=== PATIENT | female | born 1950 | race Caucasian/White ===

== ENCOUNTER 2023-07-30 09:59 | Inpatient (IN) | payer MEDICARE, BC ==
[~2023-07-30] VITALS: Ht 165.1 cm; Wt 94.8 kg
[2023-07-30] MEDS ORDERED: LEXAPRO 10MG10 MG PO (15:13)
[2023-07-30] MEDS ORDERED: FERROUS SU325 MG/TAB PO (15:13)
[2023-07-30] MEDS ORDERED: ASPERCREME1 EACH TP (15:14)
[2023-07-30] MEDS ORDERED: MOBIC 7.5MG7.5 MG PO (15:14)
[2023-07-30] MEDS ORDERED: NUTRISOURCE FI205 GM PO (15:15)
[2023-07-30] MEDS ORDERED: GLUCOPHAGE500 MG/TAB PO (15:15)
[2023-07-30] MEDS ORDERED: REQUIP 1MG T1 MG/TAB PO (15:15)
[2023-07-30] MEDS ORDERED: PROTONIX 40MG T40 MG PO (15:15)
[2023-07-30] MEDS ORDERED: REQUIP2 MG PO (15:16)
[2023-07-30] MEDS ORDERED: VANCO 1 GR1 GM/250 M IV (15:17)
--- NOTE | 2023-07-30 16:10 | NUR ---
PATIENT BROUGHT TO FLOOR. ASSESSMENT PERFORMED. INTAKE COMPLETE. WAITING FOR ORDERS. PATIENT REPORTS MILD PAIN AND NAUSEA.
[2023-07-30 18:00] VITALS: BP 108/74; PULSE 63; TEMP 97.7
--- NOTE | 2023-07-30 21:26 | NUR ---
PT A&O X4 LAYING IN BED. DENYING N/V & STATES SHE HAS SOME MILD PAIN IN HER LOWER BACK BUT DENYING NEED FOR PAIN MEDS AT THIS TIME. GARCIA TO DD WITH CLOUDY MICA OUTPUT. FALL PRECAUTIONS IN PLACE & CALL LIGHT IN REACH.
[2023-07-30 21:38] VITALS: BP_SYST 108
[2023-07-31 05:50] VITALS: BP 135/96; PULSE 75; TEMP 98.4
--- NOTE | 2023-07-31 06:24 | NUR ---
PT AWAKE SITTING UP IN BED THIS MORNING. NO C/O PAIN. DENYING FURTHER NEEDS. CALL LIGHT IN REACH & FALL PRECAUTIONS IN PLACE.
[2023-07-31 06:49] VITALS: BP_SYST 135
--- NOTE | 2023-07-31 09:37 | NUR ---
PATIENT ALERT AND ORIENTED X4. VSS. PATIENT HERE FOR DEBILITY R/T INFECTION S/P LAMINECTOMY. PATIENT REPORTS PAIN /, REQUESTS PAIN MEDICATION. PICC TO RIGHT UPPER ARM, SINGLE LUMEN, FLUSHES WELL, GOOD BLOOD RETURN. GARCIA TO DD WITH YELLOW OUTPUT. PATIENT DENIES ANY NAUSEA THIS MORNING. PATIENT TOLERATING PO. CALL LIGHT IN REACH. BED ALARM ON. NO FURTHER NEEDS.
--- NOTE | 2023-07-31 10:45 | NUR ---
Has lack of transportation kept you from medical appts, meetings, work, or from getting things needed for daily living? NO How often do you feel lonely or isolated from those around you? NEVER Over the past 5 days, how much of the time has pain made it hard for you to sleep? RARELY OR NOT AT ALL Over the past 5 days, how often have you limited your participation in therapy due to pain? RARELY OR NOT AT ALL Over the past 5 days, how often have you limited your day-to-day activities because of pain? RARELY OR NOT AT ALL Have you had 2 or more falls in the past year or any fall with an injury? YES Did you have major surgery during the 100 days prior to admission? YES
--- NOTE | 2023-07-31 14:11 | NUR ---
Lead Ramp Service Man met with patient to complete initial intake. Patient lives [place], [place] with her daughter, Marisa (ph#[phone]) and her son in law, Francesco. Patient does not have a current primary care provider but would be interested in SW helping her set one up. Patient was being seen by a PCP in [place], but patient stated she was "discharged" on the first. SW inquired as to why and patient stated that PCP "didn't know what to do with me". Patient uses [facility] in [place] for medications. Patient stated she has been in and out of the hospital since December, but before that she was independent with ADLS. Patient lives in a one level home that has five stairs into the home at the front, however patient enters through the garage, which has a ramp. Patient has a walk in shower, shower seat, grab bars, toilet riser, bars on each side of the toilet, bedside rail, front wheeled walker, and she is currently renting a wheelchair. Patient advised she has had services from [facility] and would like to use them again if HH is recommended. Patient stated her daughters: Marisa and Zara are her DPOA-HC.
--- NOTE | 2023-07-31 14:23 | NUR ---
Gis Mapping Technician contacted the [facility] for [facility] and notified them that patient has been admitted to [facility]. will keep them posted on discharge date and recommendations. #[phone]
[2023-07-31 16:52] VITALS: BP 138/48; PULSE 65; TEMP 99.4
[2023-07-31 19:26] VITALS: BP_SYST 138
--- NOTE | 2023-07-31 19:27 | NUR ---
RECEIVED CHANGE OF SHIFT REPORT FROM DAY SHIFT RN. PATIENT RESTING IN BED, EXIT ALARM ON, CALL LIGHT IN REACH. DENIES ANY NEEDS AT TIME OF REPORT.
[2023-08-01 05:25] VITALS: BP 131/48; PULSE 72; TEMP 98.4
[2023-08-01 07:16] VITALS: BP_SYST 131
--- NOTE | 2023-08-01 07:16 | NUR ---
Shift report received from night RN. Pt sleeping supine in bed w/ even & unlabored resps. No events reported overnight. Pt has her call light in reach. Fall precautions in place.
--- NOTE | 2023-08-01 07:17 | NUR ---
CHANGE OF SHIFT REPORT GIVEN TO DAY SHIFT RNSAM.
--- NOTE | 2023-08-01 07:43 | NUR ---
Pt sitting up in bed to eat breakfast independently. Pt reporting low back pain at 710 & requesting Tylenol. Tylenol given per PRN order. Other needs denied. Call light in reach. Bed alarm on.
--- NOTE | 2023-08-01 08:59 | NUR ---
Pt off unit w/ PT.
--- NOTE | 2023-08-01 11:24 | NUR ---
Shower completed w/ OT assistance. Pt c/o mid back & left lower back pain. Lidocaine patches placed over these areas at pt's request. Pt also c/o rt heel soreness. Skin is firm (not boggy), intact, and blanches. Pt declined wearing PRIMO boot for now & would like to try floating heel w/ pillows first. Discussed w/ pt keeping BLE elevated on footrest while she is in recliner to promote circulation. Pt agreeable. Pt denies other needs. OT in the room for upper & lower body dressing.
--- NOTE | 2023-08-01 11:46 | NUR ---
Pt reporting back pain at 02/26. Tylenol given per PRN order at pt's request.
--- NOTE | 2023-08-01 13:03 | NUR ---
Pt off unit w/ PT.
--- NOTE | 2023-08-01 15:07 | NUR ---
Pt sitting up in bed visiting w/ her daughters. Pt given scheduled gabapentin approx 30 minutes ago. Pt denies any other needs at this time. Call light in her reach. Fall precautions in place.
--- NOTE | 2023-08-01 15:18 | NUR ---
Pediatric Dietician met with patient and her two daughters, Marisa and Zara to provide copy of team conference notes and give update. SW advised patient will be re-evaluated next week and that there is not set discharge date at this time. SW did discuss patient's goal of getting home before [place]. TATI scheduled family meeting for 08/08/23.
[2023-08-01 17:09] VITALS: BP 125/51; PULSE 80; TEMP 98.8
--- NOTE | 2023-08-01 17:19 | NUR ---
Pt sitting up in bed to eat dinner independently. Pt still feeling full from the lunch her daughter brought for her. Pt ate <10% of her dinner. Tylenol given for back pain 02/26. Pt would like roxicodone at bedtime - will pass on to night RN. Pt denies other needs. Call light in her reach. Bed alarm is on.
[2023-08-01 18:51] VITALS: BP_SYST 125
--- NOTE | 2023-08-01 21:00 | NUR ---
[id number] PT RESTING IN BED. A&O REMAINS IN ISOLATION FOR MRSA. SEE COMPLETED SHIFT ASSESSMENT. SEE MAR FOR OXYCODONE GIVEN FOR BACK PAIN. LEVEL 7/10. SEE NEW ORDER FOR UA. URINE IN GARCIA VERY CLOUDY AND PINK/YELLOW. ALSO GAVE ADDITIONAL PROTONIX FOR C/O HEARTBURN PER ORDER. CALL LIGHT IN REACH. BED ALARM SET.
[2023-08-02 00:08] LABS: COLLECTION METHOD CATHETER
[2023-08-02 00:44] LABS: PH 5.5 (5.0-8.5); URINE APPEARANCE Cloudy (CLEAR/HAZY); URINE COLOR Yellow (YELLOW); URINE PROTEIN(semi-quant) 1+ (NEGATIVE)
[2023-08-02 00:45] LABS: URINE BLOOD 3+ (NEGATIVE); URINE GLUCOSE Negative (NEGATIVE); URINE KETONE Negative (NEGATIVE); URINE NITRATE Positive (NEGATIVE); URINE UROBILINOGEN 0.2 E.U/dL (0.2-1.0)
[2023-08-02 01:26] LABS: URINE BACTERIA Many /hpf (NONE SEEN)
[2023-08-02 05:57] VITALS: BP 132/51; PULSE 69; TEMP 97.8
[2023-08-02 06:46] VITALS: BP_SYST 132
--- NOTE | 2023-08-02 06:47 | NUR ---
Shift report received from night RN. Pt c/o increased heartburn/GERD sx overnight. Pt was given additional dose of Protonix during the noc shift. Pt currently sleeping supine w/ even & unlabored resps. Call light in reach. Fall precautions in place.
--- NOTE | 2023-08-02 07:20 | NUR ---
Pt sitting up in bed to eat breakfast. Pt rating back pain at 6/10. Tylenol requesting prior to starting PT at 0915 this morning. Other needs denied. Call light in reach. Fall prec in place.
--- NOTE | 2023-08-02 08:26 | NUR ---
Dr. Brennan notified of Uro cons placed. Plan to see pt later today
--- NOTE | 2023-08-02 10:28 | NUR ---
Pt off unit for Group Therapy.
--- NOTE | 2023-08-02 12:17 | NUR ---
Pt sitting up in her wheelchair eating lunch independently. Pt rating her back pain at 6/10. Tylenol given per PRN order.
--- NOTE | 2023-08-02 12:45 | NUR ---
Admission QIM scores were reviewed by the team. Code of 88 chosen for oral hygiene was determined by team discussion to be the most usual performance before interventions for this patient during the assessment period. Code of 2 chosen for putting on/taking off footwear was determined by team discussion to be the most usual performance before interventions for this patient during the assessment period. Code of 3 chosen for lying to sitting side of bed was determined by team discussion to be the most usual performance before interventions for this patient during the assessment period. Code of 2 chosen for sit to stand was determined by team discussion to be the most usual performance for this patient during the discharge assessment period. Code of 2 chosen for chair/bed to chair transfer was determined by team discussion to be the most usual performance before interventions for this patient during the assessment period. Code of 4 for car transfer was determined by team discussion to be the most usual performance before interventions for this patient during the assessment period. Code of 88 chosen for walking 10 feet was determined by team discussion to be the most usual performance for this patient during the discharge assessment period.--Laurel Sharpe, PD
--- NOTE | 2023-08-02 14:04 | NUR ---
Pt resting supine in bed after working w/ OT. Pt denies the need for any pain medication at this time. Call light in her reach. Bed alarm is on.
[2023-08-02] MEDS ORDERED: DULCOLAX S10 MG/SUPP RC (14:48)
[2023-08-02] MEDS ORDERED: ZOFRAN 4MG T4 MG/TAB PO (14:49)
[2023-08-02] MEDS ORDERED: MIRALAX PA17 GM/Dose PO (14:50)
[2023-08-02] MEDS ORDERED: LACTULOSE10 GM/153 PO (14:51)
[2023-08-02] MEDS ORDERED: LOVENOX 4040 MG/0.4 SQ (14:52)
[2023-08-02] MEDS ORDERED: TYLENOL 325MG325 MG PO (14:52)
[2023-08-02] MEDS ORDERED: GLUCAGON EMERGEN1 M1 SQ (14:53)
[2023-08-02] MEDS ORDERED: CVS GLUCOSE15 GM (14:53)
[2023-08-02] MEDS ORDERED: ROXICODONE15 MG PO (14:55)
--- NOTE | 2023-08-02 16:27 | NUR ---
Pt sitting up in bed eating a snack & watching tv. She denies the need for pain medication at this time. Call light in her reach. Bed alarm is on.
[2023-08-02 17:56] VITALS: BP 141/46; PULSE 79; TEMP 98.4
[2023-08-02 18:30] VITALS: BP_SYST 141
--- NOTE | 2023-08-02 20:00 | NUR ---
PT RESTING IN BED. A&O. REMAINS IN ISOLATION. HAVING BACK PAIN. DENIES NEED FOR OXYCODONE W/ PAIN LEVEL 6-02/26. RT FOOT DROP. CALL LIGHT IN REACH. BED ALARM SET.
[2023-08-03 04:18] VITALS: BP 126/53; PULSE 67; TEMP 98
[2023-08-03 07:02] VITALS: BP_SYST 126
--- NOTE | 2023-08-03 09:19 | NUR ---
PT UP TO SHOWER WITH OT THIS AM. MEDS GIVEN PER ORDERS. PO TYLE FOR PAIN AT THIS TIME PER PT REQUEST. PICC LINE TO FLORENCIO. AM LABS DRAWN, INSULIN NOT REQUIRED THIS AM. LIDO PATCHES TO LEFT LOWER BACK.
--- NOTE | 2023-08-03 14:40 | NUR ---
Organ Pipe Maker Metal checked in on patient before the weekend and she had no questions or concerns at this time. SW provided list of primary care providers in the [place], [place] area for her to review.
[2023-08-03 17:43] VITALS: BP 149/56; PULSE 71; TEMP 98.7
[2023-08-03 19:00] VITALS: BP_SYST 149
--- NOTE | 2023-08-03 19:00 | NUR ---
PATIENT IS IN BED RESTING, WATCHING TV WITH COMPLAINTS OF PAIN AND NAUSEA. PATIENT'S VITAL SIGNS ARE STABLE AND CALL LIGHT IS WITHIN REACH. PATIENT HAS A RIGHT UPPER ARM PICC WHICH FLUSHES WITHOUT BLOOD RETURN. WILL BE COMING IN DURING ASSESSMENT WITH PAIN AND NAUSEA MEDICATION. PATIENT STILL HAS GARCIA CATHETER IN PLACE.
[2023-08-04] VITALS (8 sets, daily range): BP systolic 132–151; BP diastolic 50–89; PULSE 67–77; TEMP 97.4–98.4
[2023-08-04 06:32] LABS: BASO # 0.1 K/mm3 (0.0-0.2); BASO % 0.8 % (0.0-2.0); CALCIUM 8.4 mg/dL (8.4-10.2); CREATININE, serum 0.58 mg/dL (0.57-1.11); EOS # 0.3 K/mm3 (0.0-0.7); EOS % 4.6 % (0.0-4.0); GRAN # 4.5 K/mm3 (1.4-6.5); GRAN % 71.4 % (42.2-75.2); LYMPH # 1.1 K/mm3 (1.2-3.4); LYMPH % 17.8 % (20.0-51.0); MEAN CELL VOLUME 86 fl (80.0-100.0); MEAN CORPUSCULAR HGB CONC 31 g/dl (33.0-37.0); MEAN PLATELET VOLUME 9.3 fl (7.4-10.4); MONO # 0.3 K/mm3 (0.1-0.6); MONO % 5.1 % (1.7-9.3); PLATELET COUNT 200 K/mm3 (130-400); RED BLOOD COUNT 3.25 M/mm3 (4.10-5.30); REDCELL DISTRIBUTION WIDTH-CV 16.5 % (11.5-14.5)
[2023-08-04 06:34] LABS: HEMATOCRIT 27.9 % (37.0-47.0); HEMOGLOBIN 8.7 g/dl (12.5-16.0); MEAN CORPUSCULAR HEMOGLOBIN 27 pg (27-31); POTASSIUM 2.7 mmol/L (3.5-4.5)
--- NOTE | 2023-08-04 06:58 | NUR ---
Shift report received from night RN. K+ 2.7 this morning. IV K+ started by night RN. Will continue to monitor. Pt sleeping supine in bed w/ even & unlabored resps. Call light in reach. Fall precautions in place.
--- NOTE | 2023-08-04 07:28 | NUR ---
Critical K+ value reported to Hospitalist. K+ 2.7. IV K+ was initiated by yannick RN. Per Hospitalist, continue & complete current bag of K+. Initiate tele. Give 40meQ PO Effer K once bag completed & repeat dose in 4 hrs. Recheck K+ in four hours. Pt updated on new orders. Pt denies chest pain, NUÑEZ, dizziness, difficulty breathing.
--- NOTE | 2023-08-04 07:53 | NUR ---
Pt sitting up in bed to eat breakfast independently. Effer K given as ordered. Tele monitor placed on. Pt denies chest pain, NUÑEZ, difficulty breathing. Zofran given per PRN order for nausea.
--- NOTE | 2023-08-04 08:59 | NUR ---
OT refused this morning d/t nausea. She reports nausea is getting better after taking Zofran this morning. Denies any other needs at this time. Call light in her reach. Bed alarm is on.
--- NOTE | 2023-08-04 10:40 | NUR ---
Group Therapy refused.
--- NOTE | 2023-08-04 13:50 | NUR ---
Pt resting supine in bed watching tv. She has had 2-3 loose/soft BM's throughout shift so far. Last K+ level 4.0. Pt denies the need for pain medication at this time. Call light in her reach. Bed alarm on. Prakash cath patent to drainage bag.
--- NOTE | 2023-08-04 16:04 | NUR ---
Pt resting supine in bed w/ BLE elevated on pillows. Pt denies pain. Reports her stomach feels "like it's churning". Ge offered & declined. Pt states she will call if nausea gets worse. Other needs denied. Call light in her reach. Bed alarm on.
--- NOTE | 2023-08-04 17:19 | NUR ---
Pt sitting up in bed eating breakfast. Pt denies nausea or abd. pain but states she does not have much of an appetite. Pt denies the need for pain medication. Other needs denied. Call light in reach. Bed alarm on.
--- NOTE | 2023-08-04 20:00 | NUR ---
UPON SHIFT ASSESSMENT, ALFA WAS UP IN BED WATCHING TV. SHE WAS PLEASANT AND AXO X4. SHE C/O 3/10 BACK PAIN AND DID NOT ASK FOR PAIN MEDS. SHE VOICED CONCERNS ABOUT ONGOING LOOSE STOOLS-PROBIOTICS IN EMAR. GARCIA ACTIVELY DRAINING MICA, CLEAR URINE. BLLE WEAKNESS NOTED ON RT FOOT. SHE DENIES CHEST PAIN AND SOA.
[2023-08-05] VITALS (8 sets, daily range): BP systolic 124–159; BP diastolic 54–63; PULSE 68–104; TEMP 98–98.9
--- NOTE | 2023-08-05 02:14 | NUR ---
BARRIER CREAM APPLIED TO INNER THIGHS AND CATHETER CARE PROVIDED.
--- NOTE | 2023-08-05 02:45 | NUR ---
ALFA C/O NAUSEA. PRN ZOFRAN ADMINISTERED.
--- NOTE | 2023-08-05 04:15 | NUR ---
ALFA'S NAUSEA IS UNRESOLVED WITH ZOFRAN. ADMINISTERED PRN TUMS.
--- NOTE | 2023-08-05 05:35 | NUR ---
THROUGHOUT THE NIGHT, ALFA COMPLAINED OF NAUSEA. HER VITAL SIGNS REMAIN STABLE AND TELE IS NS. SHE DENIES ANY PAIN OR NEEDS AT THIS TIME. CALL LIGHT WITHIN REACH.
--- NOTE | 2023-08-05 07:07 | NUR ---
Shift report received from night RN. Pt received 2G IV Mag during noc shift for replacement. Redness noted to bilat inner thighs & barrier crm applied - will continue to monitor skin. No other events reported overnight. Pt sleeping supine in bed w/ even & unlabored resps. Call light in reach. Bed alarm on.
[2023-08-05 07:23] LABS: CALCIUM 8.5 mg/dL (8.4-10.2); CREATININE, serum 0.61 mg/dL (0.57-1.11); POTASSIUM 3.6 mmol/L (3.5-4.5)
--- NOTE | 2023-08-05 09:45 | NUR ---
Pt incont of loose/soft small BM. Hygiene & catheter care completed. Prakash cath patent to drainage bag w/ clear, yellow urine. Pt given Oxycodone approx 1 hr ago at her request for back pain. Lidocaine patches placed to left hip & left low back. Pt denies any nausea, chest pain, NUÑEZ. Pt is anticipating a visit from her children later this morning & is agreeable to getting out of bed around that time. Pt denies other needs. Call light in her reach. Bed alarm on.
--- NOTE | 2023-08-05 14:55 | NUR ---
Pt sitting up in bed eating lunch that was brought in by her daughters and son-in-law. Pt reports feeling better today than yesterday. She feels that taking pain medication this morning made a difference. Pt denies the need for any pain medication at this time. Denies other needs. Call light in her reach. Bed alarm is on.
--- NOTE | 2023-08-05 15:19 | NUR ---
Pt requesting pain medication for pain 9/10 in her back. Oxycodone given per PRN order. Family remains at the bedside. Pt denies other needs. Call light in her reach. Bed alarm is on.
--- NOTE | 2023-08-05 18:08 | NUR ---
Pt lying supine in bed watching tv. Pain/discomfort denied. Other needs denied. Call light in reach. Bed alarm on. Vanc infusing to RUE PICC w/o sx of infiltration.
--- NOTE | 2023-08-05 18:26 | NUR ---
Pt declined dinner tray - feels full from the lunch her daughters brought in for her this afternoon.
--- NOTE | 2023-08-05 18:57 | NUR ---
RECEIVED CHANGE OF SHIFT REPORT FROM DAY SHIFT RN.
[2023-08-06] VITALS (9 sets, daily range): BP systolic 126–146; BP diastolic 45–58; PULSE 73–81; TEMP 97.5–98.7
--- NOTE | 2023-08-06 02:52 | NUR ---
Patient resting with eyes closed, does not wake when door to room open by staff nursing rounds. Observed breathing as nonlabored and even. Exit alarm on with call light in reach.
[2023-08-06 06:58] LABS: BASO # 0.1 K/mm3 (0.0-0.2); EOS # 0.3 K/mm3 (0.0-0.7); EOS % 4.1 % (0.0-4.0); GRAN # 5.3 K/mm3 (1.4-6.5); GRAN % 72.4 % (42.2-75.2); LYMPH # 1.2 K/mm3 (1.2-3.4); LYMPH % 16.6 % (20.0-51.0); MEAN CELL VOLUME 88 fl (80.0-100.0); MEAN CORPUSCULAR HGB CONC 30 g/dl (33.0-37.0); MEAN PLATELET VOLUME 9.2 fl (7.4-10.4); MONO # 0.4 K/mm3 (0.1-0.6); MONO % 5.6 % (1.7-9.3); PLATELET COUNT 212 K/mm3 (130-400); RED BLOOD COUNT 3.38 M/mm3 (4.10-5.30); REDCELL DISTRIBUTION WIDTH-CV 16.7 % (11.5-14.5)
[2023-08-06 07:00] LABS: HEMATOCRIT 29.7 % (37.0-47.0); MEAN CORPUSCULAR HEMOGLOBIN 27 pg (27-31)
[2023-08-06 07:17] LABS: ERYTHROCYTE SEDIMENTATION RATE 30 mm/hr (0-30)
[2023-08-06 07:23] LABS: ALANINE AMINOTRANSFERASE < 6 U/L (0-55); ALBUMIN 2.5 gm/dL (3.4-4.8); ALKALINE PHOSPHATASE 68 U/L (40-150); ANION GAP 9 mmol/L (7-16); AST,SGOT 9 U/L (5-34); BILIRUBIN,TOTAL 0.2 mg/dL (0.2-1.2); BLOOD UREA NITROGEN 6 mg/dL (10-20); C-REACTIVE PROTEIN 1.78 mg/dL (0.00-0.50); CALCIUM 8.4 mg/dL (8.4-10.2); CARBON DIOXIDE 30 mmol/L (23-31); CHLORIDE 102 mmol/L (98-107); CREATININE, serum 0.63 mg/dL (0.57-1.11); GLUCOSE 94 mg/dL (70-99); POTASSIUM 3.4 mmol/L (3.5-4.5); SODIUM 141 mmol/L (136-145); TOTAL PROTEIN 5.6 gm/dL (6.2-8.1)
--- NOTE | 2023-08-06 07:31 | NUR ---
RECIEVED REPORT FROM [facility] SENIOR POLICY ADVISOR SAMREEN.
--- NOTE | 2023-08-06 07:37 | NUR ---
Change of shift report given to day shift RNJoel.
--- NOTE | 2023-08-06 10:10 | NUR ---
Pt alert and oriented x4. Very pleasant upon meeting this morning, she daisy great historian of what brought her here to in patient rehab. Shift assesment complete, see documnentation. Pain rated 7/10, medicated per emar. Able to eat breakfast independantly. Had a shower today with OT. Has a helaed scar from back [facility] in December this year that is midline and SANDY. PICC line in rght upper arm that is flushing well, CDI. She is mod X1 for OT this morning. Call light within reach. Bed alarm engaged.
--- NOTE | 2023-08-06 16:43 | NUR ---
milking worker met with patient to discuss discharge planning. Patient expressed she had not chosen a PCP from the provider list TATI Malik provided last week. Patient reports she was previously using [facility] and would like to continue that service when she returns home. Patient has a family meeting on Sunday at 10:15 am. SW expressed she would meet with patient on Sunday after IPR team meeting to discuss progress and if a discharge date has been established. Patient understood and had no further questions.
--- NOTE | 2023-08-06 19:10 | NUR ---
RECEIVED CHANGE OF SHIFT REPORT FROM DAY SHIFT NURSE. PATIENT RESTING IN BED, DENIES ANY NEEDS, EXIT ALARM ON, CALL LIGHT IN REACH.
--- NOTE | 2023-08-06 23:44 | NUR ---
REQUESTED AND GIVEN PAIN MEDS FOR BACK DISCOMFORT, SEE MAR. NO OTHER NEEDS REPORTED.
[2023-08-07] VITALS (12 sets, daily range): BP systolic 124–146; BP diastolic 52–61; PULSE 73–112; TEMP 97.9–99.4
--- NOTE | 2023-08-07 01:30 | NUR ---
PATIENT RESTING WITH EYES CLOSED IN BED, BREATHING EVEN AND NONLABORED. EXIT ALARM ON, CALL LIGHT IN REACH. DOES NOT WAKE DURING NURSING ROUNDS.
--- NOTE | 2023-08-07 05:19 | NUR ---
Denies any needs or complaints at this time.
--- NOTE | 2023-08-07 06:50 | NUR ---
RECIEVED REPORT FROM TEAM COORDINATOR NURSE.
--- NOTE | 2023-08-07 07:06 | NUR ---
Change of shift report given to day shift nurseJoel.
--- NOTE | 2023-08-07 09:53 | NUR ---
Pt alert and oriented X4. VSS, shift assesment complete. Pain rated 7/10 ,medicated per emar. Prakash catheter to dependent drainage dark yellow urine draining, CDI. Per provider catheter to be D/C tomorrow, she doesnt want it out today. Blanchable redness to upper bilat buttocks, pt repositions independantly, moisture barrier applied this morning. Denies further needs at this time. Call light within reach, bed alarm engaged.
--- NOTE | 2023-08-07 19:28 | NUR ---
RECEIVED CHANGE OF SHIFT REPORT FROM DAY SHIFT NURSE. PATIENT RESTING IN BED, EXIT ALARM ON, CALL LIGHT IN REACH. CONTACT ISOLATION IN PLACE.
--- NOTE | 2023-08-07 22:00 | NUR ---
PICC flushed with no observed swelling to right upper extremity. Patient denies pain with flushes and RUE without redness to PICC site and skin is normal temp to touch. Observe no blood return with flushes pre/post IV medical physiologist.
[2023-08-08] VITALS (10 sets, daily range): BP systolic 136–154; BP diastolic 54–62; PULSE 72–109; TEMP 97.5–98.4
--- NOTE | 2023-08-08 06:00 | NUR ---
Continue to observe no significant blood return with pre/post flushes to PICC line as per hosp p/p. Patient denies discomfort with flushing, no swelling to PICC site extremity, no redness observed and skin temp is normal to touch.
--- NOTE | 2023-08-08 07:13 | NUR ---
RECIEVED REPORT FROM CASTING AND PASTING SUPERVISOR NEGRITA JOLLEY.
--- NOTE | 2023-08-08 07:33 | NUR ---
Change of shift report given to day shift nurse. Patient resting in bed, exit alarm on, call light in reach.
--- NOTE | 2023-08-08 09:02 | NUR ---
REMOVED INDWELLING CATHETER PER PROVIDER ORDER AT 0800 THIS AM.
--- NOTE | 2023-08-08 11:10 | NUR ---
Pt alert and oriented X4. Shift assessment complete, VSS. Pain rated 7/10 medicated per emar. Prakash D/C around 0800, pt had successful void around 1000 this morning. pt is able to tolerate turning side to side with minimal assistnace. She had a shower this morning and put on clean clothing with OT. Overall doing well with encouragement to use the restroom and self care is sometimes lacking. Call light within reach, bed alarm set.
--- NOTE | 2023-08-08 16:29 | NUR ---
trailhead construction worker met with the IPR team to discuss patient's progress and discharge planning. Patient is scheduled for discharge on 08/16/23 with home health services. SW met with patient, family members and IPR team for the family meeting. Family and patient were okay with discharge on 08/16/23. Sw met with patient to discuss IPR team meeting notes and discharge date of 08/16/23. Patient expressed she was okay with that discharge date and would like to review the Medicare.gov list that TATI provided. TATI will follow up with patient's choice of home health. Discharge Plan: Home with home health
--- NOTE | 2023-08-08 19:12 | NUR ---
CHERYL nurse was called today about nursing staff on nights not being able to get blood return from R upper arm PICC. Mel came up to the unit today to remove PICC from another pt and said she would see MRS. Burr, because MRs Burr had therapies and was off unit when she tried, she said she would return after 2pm and per pt reprt, never did. I still am not able to draw from the PICC line or get flash. Reported to shift supervisor rn nurse on coming as well.
[2023-08-09 05:08] VITALS: BP 153/68; PULSE 86; TEMP 98.3
--- NOTE | 2023-08-09 07:09 | NUR ---
Shift report received from night RN. PICC line flushing well but w/o blood return. PICC site w/o redness or tenderness. IV services was notified yesterday per shift report. No other events overnight. Pt sleeping supine in bed after PICC flush. Resps are even & unlabored. Call light in reach. Bed alarm on.
--- NOTE | 2023-08-09 07:34 | NUR ---
Pt awake & lying supine in bed. Pt ate approx 40% of breakfast independently. Reports pain level at 02/26 - scheduled pain medications given. Denies the need for additional pain meds. Lidocaine patches refused at this time - pt wants to wait until OT arrives. Other needs denied. Call light in reach. Bed alarm on.
[2023-08-09 09:45] VITALS: BP_SYST 153
--- NOTE | 2023-08-09 10:21 | NUR ---
Pt off unit for Group Therapy.
--- NOTE | 2023-08-09 11:53 | NUR ---
PICC RUE flushes well w/ good blood return. Pt sitting up in her wheelchair after returning from Group Therapy. Pt reporting mild pain - Tylenol given per PRN order. Pt denies other needs at this time. Call light in reach. Chair alarm is on.
[2023-08-09 12:20] VITALS: BP_SYST 153
[2023-08-09 16:47] VITALS: BP 135/43; PULSE 71; TEMP 98.9
[2023-08-09 16:59] VITALS: BP_SYST 135
--- NOTE | 2023-08-09 17:38 | NUR ---
Pt sitting up in bed to eat dinner. She reports not feeling very hungry but will try to eat a little bit. She denies the need for pain medication at this time. Denies other needs. Call light in reach. Bed alarm on.
[2023-08-09 19:00] VITALS: BP_SYST 135
--- NOTE | 2023-08-09 20:30 | NUR ---
PT RESTING IN BED. A&OX4. REMAINS IN CONTACT ISOLATION FOR MRSA. SEE COMPLETED SHIFT ASSESSMENT. SEE MAR FOR LOW BACK AND RT HIP PAIN LEVEL 03/29. CONTINUED K+ PROTOCOL. CALL LIGHT IN REACH. BD ALARM SET.
--- NOTE | 2023-08-10 00:06 | NUR ---
2:1 ASSIST TO BSC. VOIDED CLEAR YELLOW URINE. PT VERY SHAKY AND UNSTEADY. NEEDED ASSIST WITH CLOTHING AND HYGIENE. BACK TO BED. NEEDED HELP WITH LEGS INTO BED.
--- NOTE | 2023-08-10 01:27 | NUR ---
2:1 ASSIST TO BSC. VOIDED. PT WEAK AND SHAKY. BACK TO BED. CALL LIGHT IN REACH. BED ALARM SET.
[2023-08-10 05:16] VITALS: BP 147/73; PULSE 85; TEMP 98.5
[2023-08-10 07:04] VITALS: BP_SYST 147
--- NOTE | 2023-08-10 07:05 | NUR ---
Shift report received from night RN. No events reported overnight. Pt awake, supine in bed, watching tv. Pt denies any needs at this time. Call light in reach. Bed alarm on.
--- NOTE | 2023-08-10 07:21 | NUR ---
RUE PICC line flushing w/o difficulty but blood return unobtainable. Will call [facility]/
--- NOTE | 2023-08-10 07:37 | NUR ---
SAMREEN Thomas w/ [facility] notified of difficulty w/ blood return w/ RUE PICC.
--- NOTE | 2023-08-10 10:22 | NUR ---
Pt off unit w/ PT.
--- NOTE | 2023-08-10 17:03 | NUR ---
millinery worker met with patient to discuss home health options. Patient would like to stay with her previous home health agency, [facility]. Patient is undecided on a PCP yet. SW contacted [facility] and they expressed they have provided services in the past for Aminah and would be open to a referral for her. SW faxed referral for Home Health to [facility]. SW notified patient of referral to [facility]. Patient reports she would like to speak with Dr. Carrasco about questions regarding PCP. SW will continue to follow.
[2023-08-10 17:26] VITALS: BP 141/52; PULSE 83; TEMP 98.6
[2023-08-10 18:54] VITALS: BP_SYST 141
--- NOTE | 2023-08-10 20:30 | NUR ---
PT RESTING IN BED. A&OX4. REMAINS IN CONTACT ISOLATION FOR MRSA. SEE COMPLETED SHIFT ASSESSMENT. SEE MAR FOR PAIN MED GIVEN. NO COMPLAINTS TONIGHT. CALL LIGHT IN REACH. BED ALARM SET.
[2023-08-11 05:31] VITALS: BP 148/57; PULSE 75; TEMP 97.7
[2023-08-11 07:18] VITALS: BP_SYST 148
[2023-08-11 18:19] VITALS: BP 135/43; PULSE 80; TEMP 99.7
--- NOTE | 2023-08-11 18:44 | NUR ---
PATIENT AXOX4, VSS. TAKES ROPINOROLE FOR RESTLESS LEG, SCHEDULED PAIN MEDS. PATIENT HAS LIDOCAINE PATCHES ON LEFT HIP PLACED THIS MORNING. SBA 1ASSIST WITH GAIT BELT TO THE RESTROOM. DID WELL TRANSFERRING AND WALKING WITH NURSING. PATIENT PICC LINE FLUSHES, BUT WILL NOT RETURN. LABS IS HAVING TO DRAW. PATIENT IS PLEASANT, RESTING IN BED WITH CALL LIGHT WITHIN REACH, BED ALARM ON, X3 BED RAILSU UP.
[2023-08-11 18:45] VITALS: BP_SYST 135
--- NOTE | 2023-08-11 19:25 | NUR ---
NOTIFIED DELORIS WALLS -HOSPITALIST REGARDING K+ 3.9 NEED CLARIFICATION ON ADMINISTRATION K+ REPLACEMENT. NO NEW SPECIFIC ORDERS TO GIVE.
--- NOTE | 2023-08-11 21:30 | NUR ---
PT RESTING IN BED. 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 SEE COMPLETED SHIFT ASSESSMENT. PT REPORTS HAS HAD SMALL AMT OF INCONTINENT URINE AT TIMES. PERICARE PROVIDED. NEW BRIEFS ON. ENC PT TO CALL STAFF IF SHE FEEL WET. SKIN INTEGRITY RATIONALE. PREVENTATIVE UTI. SEE MAR FOR PAIN MED GIVEN FOR LOW BACK AND LT HIP PAIN. DENIES OTHER NEEDS. CALL LIGHT IN REACH. BED ALARM SET.
[2023-08-11 22:30] VITALS: TEMP 98.1
[2023-08-12 05:30] VITALS: BP 136/45; PULSE 69; TEMP 97.8
[2023-08-12 06:49] VITALS: BP_SYST 136
--- NOTE | 2023-08-12 06:50 | NUR ---
Shift report received from night RN. PICC line flushing well overnight but no blood return. No other events reported overnight. Pt sleeping supine in bed w/ even & unlabored resps. Call light in reach. Bed alarm on.
--- NOTE | 2023-08-12 08:24 | NUR ---
Pt ambulating off unit w/ PT. Had emesis x 1, nonbloody, food content. No nausea or abd. pain reported. Zofran given per PRN order. Will continue to monitor.
--- NOTE | 2023-08-12 09:44 | NUR ---
Pt self-propelling wheelchair off unit w/ PT. Tylenol given at pt's request for back pain.
--- NOTE | 2023-08-12 10:31 | NUR ---
Pt sitting up in her wheelchair reporting back pain at 10/10. Oxycodone given per PRN order. Other needs denied. Call light in reach. Chair alarm on.
--- NOTE | 2023-08-12 10:39 | NUR ---
Pt off unit for Group Therapy.
[2023-08-12 16:50] VITALS: BP 102/27; PULSE 73; TEMP 97.9
[2023-08-12 16:55] VITALS: BP 110/50
--- NOTE | 2023-08-12 17:32 | NUR ---
Pt sitting up in bed eating dinner independently. Pt denies pain/discomfort at this time. Denies other needs. Call light in reach. Bed alarm on.
[2023-08-12 19:08] VITALS: BP_SYST 110
--- NOTE | 2023-08-12 19:09 | NUR ---
RECEIVED CHANGE OF SHIFT REPORT FROM DAY SHIFT NURSE.
--- NOTE | 2023-08-12 21:56 | NUR ---
PATIENT REPORTED FEELING NAUSEOUS, SEE MAR FOR ZOFRAN GIVEN.
--- NOTE | 2023-08-13 01:33 | NUR ---
Patient reports nausea after getting up to BSC, see MAR.
[2023-08-13 05:04] VITALS: BP 142/62; PULSE 91; TEMP 97.9
[2023-08-13 07:08] VITALS: BP_SYST 142
--- NOTE | 2023-08-13 07:09 | NUR ---
Shift report received from night RN. No events overnight. PICC line remained w/o blood return overnight. Pt sleeping supine in bed w/ even & unlabored resps. Call light in reach. Bed alarm on.
--- NOTE | 2023-08-13 07:16 | NUR ---
Change of shift report given to day shift nurseTai.
[2023-08-13 07:58] LABS: BASO % 0.3 % (0.0-2.0); EOS # 0.2 K/mm3 (0.0-0.7); EOS % 2.6 % (0.0-4.0); GRAN # 5.1 K/mm3 (1.4-6.5); GRAN % 80.8 % (42.2-75.2); LYMPH # 0.7 K/mm3 (1.2-3.4); LYMPH % 10.7 % (20.0-51.0); MEAN CELL VOLUME 90 fl (80.0-100.0); MEAN CORPUSCULAR HGB CONC 29 g/dl (33.0-37.0); MEAN PLATELET VOLUME 8.8 fl (7.4-10.4); MONO # 0.3 K/mm3 (0.1-0.6); MONO % 5.4 % (1.7-9.3); PLATELET COUNT 253 K/mm3 (130-400); RED BLOOD COUNT 3.38 M/mm3 (4.10-5.30); REDCELL DISTRIBUTION WIDTH-CV 16.1 % (11.5-14.5)
[2023-08-13 08:10] LABS: HEMATOCRIT 30.4 % (37.0-47.0); HEMOGLOBIN 8.9 g/dl (12.5-16.0); MEAN CORPUSCULAR HEMOGLOBIN 26 pg (27-31)
--- NOTE | 2023-08-13 08:30 | NUR ---
Pt reporting back pain at 8 & "nausea all night long". Oxycodone given per PRN order. Zofran given. Other needs denied. Call light in reach. Bed alarm on.
[2023-08-13 08:44] LABS: ALBUMIN 2.9 gm/dL (3.4-4.8); ALKALINE PHOSPHATASE 81 U/L (40-150); ANION GAP 11 mmol/L (7-16); AST,SGOT 11 U/L (5-34); BILIRUBIN,TOTAL 0.3 mg/dL (0.2-1.2); BLOOD UREA NITROGEN 11 mg/dL (10-20); C-REACTIVE PROTEIN 3.88 mg/dL (0.00-0.50); CALCIUM 8.9 mg/dL (8.4-10.2); CARBON DIOXIDE 28 mmol/L (23-31); CHLORIDE 102 mmol/L (98-107); CREATININE, serum 0.79 mg/dL (0.57-1.11); GLUCOSE 114 mg/dL (70-99); MAGNESIUM 1.8 mg/dL (1.6-2.6); POTASSIUM 3.8 mmol/L (3.5-4.5); SODIUM 141 mmol/L (136-145); TOTAL PROTEIN 6.3 gm/dL (6.2-8.1)
[2023-08-13 08:52] LABS: ALANINE AMINOTRANSFERASE < 6 U/L (0-55)
--- NOTE | 2023-08-13 14:42 | NUR ---
Pt sitting up in bed watching tv. Pt has had no further c/o nausea since this morning. Pt denies any needs at this time. Denies pain/discomfort. Call light in reach. Bed alarm on.
[2023-08-13 16:25] VITALS: BP 130/45; PULSE 81; TEMP 98.5
[2023-08-13 19:05] VITALS: BP_SYST 130
--- NOTE | 2023-08-13 19:06 | NUR ---
RECEIVED CHANGE OF SHIFT REPORT FROM DAY SHIFT NURSE.
--- NOTE | 2023-08-14 02:09 | NUR ---
Patient resting with eyes closed, breathing even and nonlabored. Did not wake during nursing rounds. Exit alarm on, call light in reach.
[2023-08-14 05:53] VITALS: BP 121/43; PULSE 69; TEMP 98
--- NOTE | 2023-08-14 07:16 | NUR ---
Change of shift report given to day shift nurseShannon. Patient in bed, exit alarm on, call light in reach.
[2023-08-14 07:38] VITALS: BP_SYST 121
--- NOTE | 2023-08-14 08:45 | NUR ---
PT PREPARING FOR SHOWER WITH THERAPY. PT REPORTING HIP AND LOWER BACK PAIN 02/26. PRN PAIN MED GIVEN PER ORDER WITH MORNING MEDS. PT DENIES NEEDS AT THIS TIME.
--- NOTE | 2023-08-14 10:45 | NUR ---
PT RESTING IN BED UPON ENTERING. PT REPORTS SOME LOWER BACK AND HIP PAIN, THIS NURSE NOTIFIED PT NEXT TIME SHES ABLE TO GET PRN MISAEL AND PT STATES THAT SHE WILL WAIT INSTEAD OF TYLENOL RIGHT NOW. 1 LIDOCAINE PATCH APPLIED TO LOWER BACK AND 1 TO HIP THIS MORNING. PICC FLUSHES WITH NO BLOOD RETURN. NIGHT RN NOTIFIED THIS NURSE THAT [facility] IS AWARE. PT DENIES NEEDS AT THIS TIME. POTASSIUM PROTOCOL STARTED.
--- NOTE | 2023-08-14 17:13 | NUR ---
corrections caseworker was notified by [facility] that they would be able to see the patient on Sunday at her home. Patient is scheduled for discharge 08/16/23. Discharge Plan: Home with Home Health
[2023-08-14 17:24] VITALS: BP 155/59; PULSE 69; TEMP 98.5
--- NOTE | 2023-08-14 18:40 | NUR ---
awake watching TV, bedside shift report received from SAMREEN Ortega
[2023-08-14 19:07] VITALS: BP_SYST 155
--- NOTE | 2023-08-14 20:45 | NUR ---
remains resting in bed watching TV, full assessment completed, see interventions for further info, assisted up to bathroom, ambulates with slow steady gait, then returns to bed and prepares for sleep, denies other needs
--- NOTE | 2023-08-14 22:36 | NUR ---
appears to be sleeping, in bed with lights on but eyes closed and resp quiet and easy
--- NOTE | 2023-08-15 01:31 | NUR ---
report given to SAMREEN Anton
[2023-08-15 04:54] VITALS: BP 137/50; PULSE 61; TEMP 98.5
--- NOTE | 2023-08-15 05:00 | NUR ---
PT UP TO THE COMMODE SEVERAL TIMES TONIGHT. PT REQUEST HELP PULLING DOWN HER UNDERWEAR AND LEFTING HER LEGS BACK UP INTO BED EACH TIME. LATER THIS MORNING, PT COMPLAINED OF PAIN. PT GIVEN ROXICODONE FOR PAIN. WILL MONITOR FOR PAIN RELIEF. FALL PRECAUTIONS IN PLACE. BED ALARM ON. CALL LIGHT WITHIN REACH.
[2023-08-15 07:10] VITALS: BP_SYST 137
--- NOTE | 2023-08-15 09:31 | NUR ---
FLORENCIO PICC LINE FLUSHED, BUT DOES NOT DRAW BACK BLOOD. CAN STILL PUT IV MEDICATION THROUGH IT, BUT WILL NOT RETURN.
--- NOTE | 2023-08-15 15:13 | NUR ---
PATIENT ASSESSMENT COMPLETE. PATIENT IS PLEASANT,BUT STILL RELYING ON PAIN MEDICATIONS Q4 HOURS. PATIENT HAS BEEN WORKING WITH THERAPY TODAY FOR 3+ HOURS AND DOING WELL. SBA WITH WALKER TO THE BATHROOM PATIENT IS CURRENTLY RESTING IN BED WITH X3 BED RAILS UP. CALL LIGHT WITHIN REACH. BED ALARM ON.
--- NOTE | 2023-08-15 17:26 | NUR ---
sheet metal worker apprentice met with IPR team to discuss patient's progress and potential discharge. Patient's discharge is scheduled for 08/16/23. sheet metal worker apprentice met with patient to discuss discharge planning. TATI reviewed the important message from [employer] with patient. Patient understood and signed the form. SW placed original in patient's chart and provided a copy to the patient. Patient had questions about PCP options in [place]. SW provided the [place] provider list to patient. TATI reviewed IPR team meeting notes with patient and provided a copy. Patient has no further questions. TATI faxed updates to [facility]. Discharge Plan: Home with home health
[2023-08-15 17:45] VITALS: BP 122/88; PULSE 102; TEMP 98.2
[2023-08-15 19:00] VITALS: BP_SYST 122
--- NOTE | 2023-08-15 19:11 | NUR ---
report received from greg burgos. pt resting in bed watching tv. pt denies pain. bed alarm on. call light in reach. all needs met at this time.
--- NOTE | 2023-08-15 20:49 | NUR ---
shift assessment complete, see documentation. pt denies pain. pt tolerated hs meds well. pt a&o x4. jamel picc patent. bed alarm on. call light in reach. all needs met at this time.
[2023-08-15] MEDS ORDERED: FLOMAX 0.40.4 MG/CAP PO (22:52)
[2023-08-15] MEDS ORDERED: COZAAR 25MG25 MG/TAB PO (22:53)
[2023-08-15] MEDS ORDERED: NEURONTIN300 MG/CAP PO (22:56)
[2023-08-15] MEDS ORDERED: PROTONIX 40MG T40 MG PO (22:57)
[2023-08-15] MEDS ORDERED: ESTRACE0.1 MG/GM VG (22:59)
[2023-08-15] MEDS ORDERED: MINOCYCLIN100 MG/CAP PO (23:00)
[2023-08-15] MEDS ORDERED: KLOR-CON 1010 MEQ PO (23:00)
[2023-08-15] MEDS ORDERED: DAZIDOX10 MG PO (23:01)
--- NOTE | 2023-08-15 23:09 | NUR ---
pt reporting 8/10 low back/left hip pain. prn oxycodone administered per orders. bed alarm on. call light in reach. all needs met at this time.
--- NOTE | 2023-08-16 04:10 | NUR ---
pt ambulated to bathroom with sba. pt steady but reports she feels shaky this morning. pt voided without issue. pt now back to bed. bed alarm on. call light in reach. all needs met at this time.
[2023-08-16 05:29] VITALS: BP 141/53; PULSE 82; TEMP 98.9
--- NOTE | 2023-08-16 06:16 | NUR ---
pt vanc running to [facility] pic without issue. pt denies pain. bed alarm on. call light in reach. all needs met at this time.
[2023-08-16 07:10] VITALS: BP_SYST 141
--- NOTE | 2023-08-16 07:10 | NUR ---
RECIEVED REPORT FROM NIGHT SAMREEN RAMON.
--- NOTE | 2023-08-16 09:45 | NUR ---
PT ALERT AND ORIENTED X4. VSS. SHIFT ASSESSMENT COMPLETE,MEDICATED PER EMAR. PAIN RATED 4/10 DIDNT WANT TO TAKE ANYTHING FOR PAIN. TRANSFERS STANDBY WITH GAIT BELT AND FWW, DOING GREAT WITH AMBULATING AND INDEPENDENCE. NO NEW COMPLAINTS AND IS READY TO GET HOME. DAUGHTER WILL BE HERE TO PICK HER UP LATER THIS AM. PICC TO RIGHT UPPER ARM FLUSHING WELL. CALL LIGHT WITHIN REACH.
--- NOTE | 2023-08-16 12:10 | NUR ---
All discharge instructions went over and explained all questions answered with pt and her daughter. PICC was removed by CHERYL at 1000, pt layed flat for 30 minutes post removal. No compliations observed or reported. All education went over. pt escorted by staff to private vehicle.
--- NOTE | 2023-08-16 14:03 | NUR ---
tankroom worker faxed discharge orders and clinical updates to [facility]. Discharge Plan: Home with [facility]
--- NOTE | 2023-08-16 15:00 | NUR ---
Will lack of transportation kept you from medical appts, meetings, work, or from getting things needed for daily living? no How often do you feel lonely or isolated from those around you? never Over the past 5 days, how much of the time has pain made it hard for you to sleep? rarely/not at all Over the past 5 days, how often have you limited your participation in therapy due to pain? rarely/not at all Over the past 5 days, how often have you limited your day-to-day activities because of pain? rarely/not at all
--- NOTE | 2023-08-17 14:12 | NUR ---
Discharge QIM scores were reviewed by the team. Code of 6 chosen for eating was determined by team discussion to be the most usual performance for this patient during the discharge assessment period. Code of 6 chosen for oral hygiene was determined by team discussion to be the most usual performance for this patient during the discharge assessment period. Code of 6 chosen for sit to lying was determined by team discussion to be the most usual performance for this patient during the discharge assessment period. Code of 6 chosen for lying to sitting was determined by team discussion to be the most usual performance for this patient during the discharge assessment period. Code of 6 chosen for sit to stand was determined by team discussion to be the most usual performance for this patient during the discharge assessment period. Code of 4 chosen for chair to bed was determined by team discussion to be the most usual performance for this patient during the discharge assessment period. Code of 6 chosen for walking 10 feet was determined by team discussion to be the most usual performance for this patient during the discharge assessment period.--Laurel Sharpe,
== END 2023-08-16 12:10 | disposition home health service (06) | DRG 92 ==
PROVIDERS: Internal Medicine; Physician Assistant; ADMIT Physical Medicine & Rehabilitation Sports Medicine
DX: G72.81 Critical illness myopathy (principal); M46.27 Osteomyelitis of vertebra, lumbosacral region; N17.9 Acute kidney failure, unspecified; N13.30 Unspecified hydronephrosis; N13.4 Hydroureter; I10 Essential (primary) hypertension; R33.9 Retention of urine, unspecified; E11.42 Type 2 diabetes mellitus with diabetic polyneuropathy; R26.89 Other abnormalities of gait and mobility; M21.371 Foot drop, right foot; R53.81 Other malaise; F32.A Depression, unspecified; K21.9 Gastro-esophageal reflux disease without esophagitis; G25.81 Restless legs syndrome; E87.6 Hypokalemia; R15.9 Full incontinence of feces; L98.8 Other specified disorders of the skin and subcutaneous tissue; R19.7 Diarrhea, unspecified; M46.47 Discitis, unspecified, lumbosacral region; Z96.653 Presence of artificial knee joint, bilateral; Z88.1 Allergy status to other antibiotic agents; Z98.1 Arthrodesis status; Z79.2 Long term (current) use of antibiotics; Z79.84 Long term (current) use of oral hypoglycemic drugs; Z79.899 Other long term (current) drug therapy; Z74.09 Other reduced mobility; Z86.14 Personal history of Methicillin resistant Staphylococcus aureus infection
CPT/HCPCS: J0696; J1650; J3370; J3475; J3480; J7050